=== PATIENT | female | born 1990 | race Caucasian/White ===

== ENCOUNTER 2020-01-24 03:25 | Inpatient (IN) | payer MEDICAID ==
[~2020-01-24] VITALS: Ht 144.8 cm; Wt 49.9 kg
[2020-01-24 05:23] LABS: HEMATOCRIT. 32.1 % (36.0-48.0); HEMOGLOBIN. 11.1 g/dL (12.0-16.0); MEAN CORPUSCULAR HEMOGLOBIN 34.4 pg (28.0-32.0); MEAN CORPUSCULAR VOLUME 99.8 fL (81.0-99.0); MEAN PLATELET VOLUME 7.5 fl (7.4-10.4); PLATELET 225 x1000/uL (130-400); RED BLOOD CELL COUNT 3.21 mill/uL (4.2-5.4); RED CELL DISTRIBUTION WIDTH 12.9 % (11.6-14.6)
[2020-01-24 05:31] LABS: CHLORIDE 106 mEq/L (98-107)
[2020-01-24 05:52] LABS: PLATELET ESTIMATE NORMAL
[2020-01-24] MEDS ORDERED: ACETAMINOPHEN 325MG TABLET PO ONE (06:30)
[2020-01-24] MEDS ORDERED: NITROFURANTOIN MACROCRYSTAL 25MG CAPSULE PO ONE (06:30)
[2020-01-24] MEDS ORDERED: SODIUM CHLORIDE 0.9% 1,000 ML IV ONE (07:16)
[2020-01-24 07:41] LABS: CLARITY URINE CLOUDY (CLEAR); COLOR URINE YELLOW (YELLOW); KETONES URINE TRACE (NEGATIVE); LEUKOCYTE ESTERASE URINE 2+ (NEGATIVE); NITRITE URINE NEGATIVE (NEGATIVE); OCCULT BLOOD URINE TRACE (NEGATIVE); PH URINE 5.5 (4.5-8.0); PROTEIN URINE 1+ (NEGATIVE); SPECIFIC GRAVITY URINE 1.021 (1.005-1.030)
[2020-01-24] MEDS ORDERED: ACETAMINOPHEN 325MG TABLET PO SCH (07:43)
[2020-01-24] MEDS ORDERED: SULFAMETHOXAZOLE/TRIMETHOPRIM 800/160MG TABLET PO SCH (11:15)
[2020-01-24] MEDS ORDERED: ONDANSETRON HCL 4MG/2ML INJ IV PRN (11:30)
[2020-01-24 12:00] VITALS: BP 99/52
[2020-01-24 12:15] VITALS: BP 99/52
[2020-01-24 13:06] LABS: HCG SCREEN POSITIVE
[2020-01-24] MEDS ORDERED: GENTAMICIN 120MG PREMIX 100 ML IV SCH (14:00)
[2020-01-24] MEDS ORDERED: CLINDAMYCIN 900 MG in DEXTROSE 5% WATER 50 ML IV SCH (14:00)
[2020-01-24 16:00] VITALS: BP 98/49
[2020-01-24] MEDS: ACETAMINOPHEN WITH CODEINE 300/30MG TABLET PO PRN (16:05)
[2020-01-24] MEDS: CEFTRIAXONE 1 G PREMIX 50 ML IV SCH (18:35)
[2020-01-24 20:00] VITALS: BP 93/53
[2020-01-24] MEDS ORDERED: NITROFURANTOIN 100MG M/M CAPSULE PO SCH (21:00)
[2020-01-24] MEDS ORDERED: CLINDAMYCIN 600MG PREMIX 50 ML IV SCH (22:00)
[2020-01-24] MEDS: ACETAMINOPHEN 325MG TABLET PO PRN (22:27)
[2020-01-25] VITALS: BP 97/46
[2020-01-25] MEDS ORDERED: GENTAMICIN 80MG PREMIX 100 ML IV SCH (02:00)
[2020-01-25 04:00] VITALS: BP 103/57
[2020-01-25] MEDS: ACETAMINOPHEN WITH CODEINE 300/30MG TABLET PO PRN ×2 (07:36→21:32)
[2020-01-25 07:41] LABS: HEMATOCRIT. 26.6 % (36.0-48.0); HEMOGLOBIN. 9.1 g/dL (12.0-16.0); MEAN CORPUSCULAR HEMOGLOBIN 34.4 pg (28.0-32.0); MEAN CORPUSCULAR VOLUME 99.8 fL (81.0-99.0); MEAN PLATELET VOLUME 8.1 fl (7.4-10.4); PLATELET 185 x1000/uL (130-400); RED BLOOD CELL COUNT 2.66 mill/uL (4.2-5.4); RED CELL DISTRIBUTION WIDTH 12.6 % (11.6-14.6)
[2020-01-25 07:45] LABS: CHLORIDE 106 mEq/L (98-107)
[2020-01-25 08:00] VITALS: BP 102/60
[2020-01-25] MEDS ORDERED: POTASSIUM CHLORIDE 20MEQ TABLET SR PO NR (09:00)
[2020-01-25] MEDS: SODIUM CHLORIDE 0.9% 1,000 ML IV SCH (09:02)
[2020-01-25 10:04] LABS: PLATELET ESTIMATE NORMAL
[2020-01-25 12:00] VITALS: BP 92/46
[2020-01-25] MEDS: ACETAMINOPHEN 325MG TABLET PO PRN (15:07)
[2020-01-25 16:00] VITALS: BP 96/54
[2020-01-25] MEDS: CEFTRIAXONE 1 G PREMIX 50 ML IV SCH (18:05)
[2020-01-25 20:00] VITALS: BP 100/60
[2020-01-26] VITALS: BP 99/40
[2020-01-26 04:00] VITALS: BP 103/60
[2020-01-26] MEDS: ACETAMINOPHEN 325MG TABLET PO PRN ×2 (04:54→11:55)
[2020-01-26] MEDS: SODIUM CHLORIDE 0.9% 1,000 ML IV SCH ×2 (04:57→11:56)
[2020-01-26 05:56] LABS: BASOPHILS % 0.1 % (0.0-2.0); EOSINOPHILS % 0.3 % (0.0-5.0); HEMATOCRIT. 27.8 % (36.0-48.0); HEMOGLOBIN. 9.4 g/dL (12.0-16.0); LYMPHOCYTES % 8.5 % (20.0-50.0); MEAN CORPUSCULAR HEMOGLOBIN 34.1 pg (28.0-32.0); MEAN CORPUSCULAR VOLUME 100.3 fL (81.0-99.0); MEAN PLATELET VOLUME 8.2 fl (7.4-10.4); MONOCYTES % 7.6 % (2.0-8.0); NEUTROPHILS % 83.5 % (40.0-76.0); PLATELET 192 x1000/uL (130-400); RED BLOOD CELL COUNT 2.77 mill/uL (4.2-5.4)
[2020-01-26 06:16] LABS: CHLORIDE 110 mEq/L (98-107)
[2020-01-26 08:00] VITALS: BP 106/70
[2020-01-26 11:57] VITALS: BP 106/70
[2020-01-26] MEDS ORDERED: CEPH-569 MT (12:18)
== END 2020-01-26 12:12 | disposition home or self-care (01) | DRG 566 ==
LOC: ER 04:06 → 6EST 10:46 → EDBEDREQTM 10:54 → ENRESERV 11:21
PROVIDERS: ADMIT Internal Medicine; ATTEND Internal Medicine
DX: O98.812 Other maternal infectious and parasitic diseases complicating pregnancy, second trimester (principal); A41.50 Gram-negative sepsis, unspecified; O23.02 Infections of kidney in pregnancy, second trimester; E87.1 Hypo-osmolality and hyponatremia; O25.12 Malnutrition in pregnancy, second trimester; O99.012 Anemia complicating pregnancy, second trimester; O99.282 Endocrine, nutritional and metabolic diseases complicating pregnancy, second trimester; D64.9 Anemia, unspecified; Z88.0 Allergy status to penicillin; Z3A.20 20 weeks gestation of pregnancy
CPT/HCPCS: 36415; 76770; 76805; 80048; 80053; 81003; 84702; 84703; 85025; 87077; 87186; 93005; 99285; J0696; J1580; J3490; J7030; J7060

== ENCOUNTER 2020-02-17 12:20 | Observation (INO) | payer MEDICAID ==
[~2020-02-17] VITALS: Ht 152.4 cm; Wt 49.4 kg
[~2020-02-17 12:20] MED LIST: CEPH-569 MT
[2020-02-17] MEDS ORDERED: PNV1TABL50 PO (12:56)
[2020-02-17 13:42] LABS: HEMATOCRIT 32.2 % (36.0-48.0); HEMOGLOBIN 11.3 g/dL (12.0-16.0); MEAN CORPUSCULAR HEMOGLOBIN 34.6 pg (28.0-32.0); MEAN CORPUSCULAR VOLUME 98.6 fL (81.0-99.0); PLATELET 275 x1000/uL (130-400); RED BLOOD CELL COUNT 3.27 mill/uL (4.2-5.4)
[2020-02-17 14:07] LABS: CLARITY URINE TURBID (CLEAR); COLOR URINE DARK YELLOW (YELLOW); KETONES URINE TRACE (NEGATIVE); LEUKOCYTE ESTERASE URINE 1+ (NEGATIVE); NITRITE URINE POSITIVE (NEGATIVE); OCCULT BLOOD URINE NEGATIVE (NEGATIVE); PH URINE 5.5 (4.5-8.0); PROTEIN URINE 1+ (NEGATIVE); SPECIFIC GRAVITY URINE 1.024 (1.005-1.030)
[2020-02-17] MEDS ORDERED: DEXT 5%/LACTATED RINGERS 1,000 ML IV ONE (14:30)
[2020-02-17] MEDS ORDERED: CEFAZOLIN 2,000 MG in DEXT 5% WATER 100 ML IV NR (14:30)
== END 2020-02-17 15:40 | disposition home or self-care (01) ==
LOC: 8 EST LDRP 12:20
PROVIDERS: ADMIT Obstetrics & Gynecology; ATTEND Obstetrics & Gynecology
DX: O9A.212 Injury, poisoning and certain other consequences of external causes complicating pregnancy, second trimester (principal); S40.022A Contusion of left upper arm, initial encounter; S40.021A Contusion of right upper arm, initial encounter; S80.02XA Contusion of left knee, initial encounter; S80.01XA Contusion of right knee, initial encounter; Z3A.23 23 weeks gestation of pregnancy; Z79.899 Other long term (current) drug therapy; W18.2XXA Fall in (into) shower or empty bathtub, initial encounter; Y93.89 Activity, other specified; Y92.89 Other specified places as the place of occurrence of the external cause; Y99.8 Other external cause status
CPT/HCPCS: 36415; 76805; 81003; 85027; 87086; 96365; 99281; G0378; J0690; J7060; 87077; 87186; 96360; 96361

== ENCOUNTER 2020-04-15 15:17 | Inpatient (IN) | payer MEDICAID ==
[~2020-04-15] VITALS: Ht 144.8 cm; Wt 57.0 kg
[~2020-04-15 15:17] MED LIST changes: +PNV1TABL50 PO
[2020-04-15] MEDS ORDERED: ACETAMINOPHEN 325MG TABLET PO STA (15:27)
[2020-04-15] MEDS ORDERED: ONDANSETRON HCL 4MG/2ML INJ IV STA (15:27)
[2020-04-15] MEDS ORDERED: SODIUM CHLORIDE 0.9% 1,000 ML IV ONE ×2 (15:27→18:30)
[2020-04-15 16:37] LABS: HEMATOCRIT. 33.5 % (36.0-48.0); HEMOGLOBIN. 11.8 g/dL (12.0-16.0); MEAN CORPUSCULAR HEMOGLOBIN 34.3 pg (28.0-32.0); MEAN CORPUSCULAR VOLUME 97.4 fL (81.0-99.0); MEAN PLATELET VOLUME 8.6 fl (7.4-10.4); PLATELET 256 x1000/uL (130-400); RED BLOOD CELL COUNT 3.44 mill/uL (4.2-5.4); RED CELL DISTRIBUTION WIDTH 12.8 % (11.6-14.6)
[2020-04-15 16:39] LABS: CHLORIDE 101 mEq/L (98-107)
[2020-04-15 17:05] LABS: PLATELET ESTIMATE NORMAL
[2020-04-15 17:27] LABS: CLARITY URINE TURBID (CLEAR); COLOR URINE DARK YELLOW (YELLOW); KETONES URINE 2+ (NEGATIVE); LEUKOCYTE ESTERASE URINE 3+ (NEGATIVE); NITRITE URINE NEGATIVE (NEGATIVE); OCCULT BLOOD URINE TRACE (NEGATIVE); PROTEIN URINE 1+ (NEGATIVE); SPECIFIC GRAVITY URINE 1.021 (1.005-1.030)
[2020-04-15] MEDS ORDERED: MORPHINE SULFATE 2 MG/ML CPJ (NOT FOR IM USE) IV ONE (18:30)
[2020-04-15 18:45] VITALS: BP 88/52
[2020-04-15] MEDS: CEFTRIAXONE 1 G PREMIX 50 ML IV NR ×2 (18:47→23:50)
[2020-04-15] MEDS ORDERED: DEXT 5%/LACTATED RINGERS 1,000 ML IV ONE (19:45)
[2020-04-15] MEDS ORDERED: GENTAMICIN 100MG PREMIX 50 ML IV SCH (20:00)
[2020-04-15] MEDS: AMPICILLIN 2,000 MG in SODIUM CHLORIDE 0.9% 100 ML IV SCH (21:55)
[2020-04-15] MEDS ORDERED: CEFTRIAXONE 2 G PREMIX 50 ML IV SCH (22:00)
[2020-04-15] MEDS ORDERED: CEFTRIAXONE 1 G PREMIX 50 ML IV SCH (22:30)
[2020-04-15] MEDS: GENTAMICIN 100MG PREMIX 50 ML IV SCH (23:07)
[2020-04-16] MEDS ORDERED: AMPICILLIN IM SCH
[2020-04-16] MEDS: AMPICILLIN 2,000 MG in SODIUM CHLORIDE 0.9% 100 ML IV SCH ×4 (04:35→23:00)
[2020-04-16] MEDS ORDERED: ACETAMINOPHEN 325MG TABLET ONE (04:46)
[2020-04-16] MEDS ORDERED: BETAMETHASONE ACET/BETAMET 30 MG/5 ML VIAL IM SCH (06:15)
[2020-04-16] MEDS: GENTAMICIN 100MG PREMIX 50 ML IV SCH (06:44)
[2020-04-16] MEDS ORDERED: CEFTRIAXONE 2 G PREMIX 50 ML IV SCH ×2 (09:00→22:00)
[2020-04-16 10:38] LABS: HEMATOCRIT. 29.3 % (36.0-48.0); HEMOGLOBIN. 10.2 g/dL (12.0-16.0); MEAN CORPUSCULAR VOLUME 97.8 fL (81.0-99.0); MEAN PLATELET VOLUME 7.6 fl (7.4-10.4); PLATELET 215 x1000/uL (130-400); RED BLOOD CELL COUNT 2.99 mill/uL (4.2-5.4); RED CELL DISTRIBUTION WIDTH 12.8 % (11.6-14.6)
[2020-04-16 13:43] LABS: PLATELET ESTIMATE NORMAL
[2020-04-16] MEDS: GENTAMICIN 80MG PREMIX 100 ML IV SCH (16:42)
[2020-04-16] MEDS: ACETAMINOPHEN 325MG TABLET PO PRN (20:00)
[2020-04-17] MEDS: AMPICILLIN 2,000 MG in SODIUM CHLORIDE 0.9% 100 ML IV SCH ×2 (04:30→10:55)
[2020-04-17] MEDS: GENTAMICIN 80MG PREMIX 100 ML IV SCH (04:33)
[2020-04-17 10:10] LABS: HEMATOCRIT. 28.2 % (36.0-48.0); HEMOGLOBIN. 9.7 g/dL (12.0-16.0); MEAN CORPUSCULAR HEMOGLOBIN 33.8 pg (28.0-32.0); MEAN CORPUSCULAR VOLUME 98.4 fL (81.0-99.0); MEAN PLATELET VOLUME 8.6 fl (7.4-10.4); PLATELET 244 x1000/uL (130-400); RED BLOOD CELL COUNT 2.87 mill/uL (4.2-5.4); RED CELL DISTRIBUTION WIDTH 12.7 % (11.6-14.6)
[2020-04-17 11:23] LABS: PLATELET ESTIMATE NORMAL
[2020-04-17] MEDS ORDERED: CEFAZOLIN 2000MG in DEXTROSE 5% WATER 100ML IV SCH (12:30)
[2020-04-17] MEDS: CEFAZOLIN 1000MG PREMIX 50 ML IV SCH (18:02)
[2020-04-17] MEDS: ACETAMINOPHEN 325MG TABLET PO PRN (20:59)
[2020-04-18] MEDS: CEFAZOLIN 1000MG PREMIX 50 ML IV SCH ×2 (06:00)
[2020-04-18 06:16] LABS: BASOPHILS % 0.2 % (0.0-2.0); EOSINOPHILS % 0.2 % (0.0-5.0); LYMPHOCYTES % 10.5 % (20.0-50.0); MEAN CORPUSCULAR HEMOGLOBIN 33.7 pg (28.0-32.0); MEAN PLATELET VOLUME 8.4 fl (7.4-10.4); MONOCYTES % 4.8 % (2.0-8.0); NEUTROPHILS % 84.3 % (40.0-76.0); PLATELET 283 x1000/uL (130-400); RED BLOOD CELL COUNT 2.96 mill/uL (4.2-5.4); RED CELL DISTRIBUTION WIDTH 12.7 % (11.6-14.6)
== END 2020-04-18 08:55 | disposition home or self-care (01) | DRG 566 ==
LOC: ER 15:17 → EDBEDREQTM 19:00 → CANBEDREQ 20:41 → 8 EST LDRP 22:16 → OBSVTOIN 22:16
PROVIDERS: ADMIT Obstetrics & Gynecology; ATTEND Obstetrics & Gynecology
DX: O23.03 Infections of kidney in pregnancy, third trimester (principal); B96.20 Unspecified Escherichia coli [E. coli] as the cause of diseases classified elsewhere; Z16.11 Resistance to penicillins; O45.8X3 Other premature separation of placenta, third trimester; Z3A.30 30 weeks gestation of pregnancy; Z88.0 Allergy status to penicillin; O34.219 Maternal care for unspecified type scar from previous cesarean delivery
CPT/HCPCS: 36415; 76805; 76815; 80053; 80170; 81003; 85025; 87077; 87186; 96361; 96366; 99281; 99291; J0290; J0690; J0696; J0702; J1580; J2270; J2405; J7030; J7050; J7060

== ENCOUNTER 2020-06-13 21:16 | Inpatient (IN) | payer MEDICAID ==
[~2020-06-13] VITALS: Ht 154.9 cm; Wt 62.1 kg
[2020-06-13] MEDS ORDERED: DEXT 5%/LR + PITOCIN 20UNITS/L 1,000 ML IV SCH ×2 (21:35→23:50)
[2020-06-13] MEDS ORDERED: FERR-71 PO (21:38)
[2020-06-13] MEDS ORDERED: NALOXONE HCL 0.4 MG/ML 1ML VIAL IM PRN (21:45)
[2020-06-13] MEDS ORDERED: MISOPROSTOL 100MCG TABLET VG SCH (21:45)
[2020-06-13] MEDS ORDERED: METHYLERGONOVINE MALEATE 0.2 MG/ML IM PRN (21:45)
[2020-06-13] MEDS ORDERED: CARBOPROST TROMETHAMINE 250 MCG/ML AMPUL IM PRN (21:45)
[2020-06-13] MEDS ORDERED: BUTORPHANOL TARTRATE 2 MG/ML VIAL IV PRN (21:45)
[2020-06-13] MEDS: LACTATED RINGERS 1,000 ML IV SCH ×2 (22:21→23:00)
[2020-06-13 22:23] LABS: INR 0.9; PARTIAL THROMBOPLASTIN TIME 25.1 sec (23.4-31.0); PROTHROMBIN TIME 9.4 sec (9.6-11.0)
[2020-06-13 22:24] LABS: HEMATOCRIT. 36.6 % (36.0-48.0); HEMOGLOBIN. 12.7 g/dL (12.0-16.0); MEAN CORPUSCULAR HEMOGLOBIN 33.8 pg (28.0-32.0); MEAN CORPUSCULAR VOLUME 97.3 fL (81.0-99.0); MEAN PLATELET VOLUME 9.3 fl (7.4-10.4); PLATELET 309 x1000/uL (130-400); RED BLOOD CELL COUNT 3.77 mill/uL (4.2-5.4); RED CELL DISTRIBUTION WIDTH 14.1 % (11.6-14.6)
[2020-06-13] MEDS ORDERED: CITRIC ACID/SODIUM CITRATE SOLN 30ML UDC PO NR (22:26)
[2020-06-13] MEDS ORDERED: MORPHINE SULFATE/PF 1MG/ML 10ML AMP ONE (22:35)
[2020-06-13] MEDS ORDERED: CEFAZOLIN SODIUM 1000MG/VIAL ONE (22:35)
[2020-06-13] MEDS ORDERED: FENTANYL CITRATE/PF 50MCG/ML 2ML VIAL ONE (22:35)
[2020-06-13] MEDS ORDERED: OXYTOCIN 10 UNITS/ML 1ML ONE ×2 (22:35→23:12)
[2020-06-13] MEDS ORDERED: EPHEDRINE SULFATE 50MG/ML VIAL ONE (22:36)
[2020-06-13] MEDS ORDERED: DIPHENHYDRAMINE 50MG/ML VIAL ONE (22:36)
[2020-06-13] MEDS ORDERED: ONDANSETRON HCL 4MG/2ML INJ ONE (22:36)
[2020-06-13] MEDS ORDERED: KETOROLAC 60MG/2ML VIAL IM ONE (22:36)
[2020-06-13 22:44] LABS: CLARITY URINE TURBID (CLEAR); COLOR URINE YELLOW (YELLOW); KETONES URINE NEGATIVE (NEGATIVE); LEUKOCYTE ESTERASE URINE 1+ (NEGATIVE); NITRITE URINE NEGATIVE (NEGATIVE); OCCULT BLOOD URINE 3+ (NEGATIVE); PH URINE 6.5 (4.5-8.0); PROTEIN URINE 2+ (NEGATIVE); SPECIFIC GRAVITY URINE 1.014 (1.005-1.030); UROBILINOGEN URINE 0.2 E.U./dL (0.2-1.0)
[2020-06-13 23:00] LABS: HEPATITIS B SURFACE ANTIGEN NEGATIVE
[2020-06-13 23:09] LABS: *AMPHETAMINES SCREEN URINE NEGATIVE (NEGATIVE); *BARBITURATES SCREEN URINE NEGATIVE (NEGATIVE); *BENZODIAZEPINES SCREEN URINE NEGATIVE (NEGATIVE); *COCAINE SCREEN URINE NEGATIVE (NEGATIVE)
[2020-06-13 23:10] LABS: CANNABINOID URINE SCREEN NEGATIVE (NEGATIVE); METHADONE URINE SCREEN NEGATIVE (NEGATIVE); OPIATES URINE SCREEN NEGATIVE (NEGATIVE); PHENCYCLIDINE URINE SCREEN NEGATIVE (NEGATIVE)
[2020-06-13] MEDS ORDERED: MIDAZOLAM HCL 2 MG/2 ML VIAL ONE (23:22)
[2020-06-13 23:48] LABS: PLATELET ESTIMATE NORMAL
[2020-06-14] MEDS ORDERED: KETOROLAC 30MG/ML VIAL IV PRN
[2020-06-14] MEDS ORDERED: RHO(D) IMMUNE GLOBULIN 300 MCG/SYR IM PRN
[2020-06-14] MEDS ORDERED: FENTANYL CITRATE/PF 50MCG/ML 2ML VIAL IV PRN ×3
[2020-06-14] MEDS ORDERED: MEPERIDINE HCL/PF 25MG/ML CPJ IV PRN
[2020-06-14] MEDS ORDERED: MORPHINE SULFATE 2 MG/ML CPJ (NOT FOR IM USE) IV PRN ×2
[2020-06-14] MEDS ORDERED: MORPHINE SULFATE 10 MG/ML CPJ IV PRN
[2020-06-14] MEDS ORDERED: IBUPROFEN 400MG TABLET PO PRN
[2020-06-14] MEDS ORDERED: DEXAMETHASONE 10 MG/ML VIAL IV PRN
[2020-06-14] MEDS ORDERED: ONDANSETRON HCL 4MG/2ML INJ IV PRN
[2020-06-14] MEDS ORDERED: DIPHENHYDRAMINE 50MG/ML VIAL IV PRN
[2020-06-14] MEDS ORDERED: BISACODYL 10MG SUPP PR PRN
[2020-06-14] MEDS ORDERED: MORPHINE SULFATE 4 MG/ML CPJ (NOT FOR IM USE) IV PRN (00:15)
[2020-06-14 02:20] VITALS: BP 115/62
[2020-06-14 07:41] VITALS: BP 118/61
[2020-06-14 08:22] LABS: BASOPHILS % 0.5 % (0.0-2.0); HEMATOCRIT. 33.3 % (36.0-48.0); HEMOGLOBIN. 11.3 g/dL (12.0-16.0); LYMPHOCYTES % 8.1 % (20.0-50.0); MEAN CORPUSCULAR HEMOGLOBIN 33.3 pg (28.0-32.0); MEAN PLATELET VOLUME 9.5 fl (7.4-10.4); MONOCYTES % 5.7 % (2.0-8.0); NEUTROPHILS % 85.7 % (40.0-76.0); PLATELET 275 x1000/uL (130-400); RED CELL DISTRIBUTION WIDTH 13.9 % (11.6-14.6)
[2020-06-14 16:18] VITALS: BP 104/50
[2020-06-14] MEDS: IBUPROFEN 800MG TABLET PO PRN ×2 (17:52→23:34)
[2020-06-14 20:00] VITALS: BP 102/64
[2020-06-15] VITALS: BP 115/64
[2020-06-15 04:00] VITALS: BP 101/60
[2020-06-15] MEDS: IBUPROFEN 800MG TABLET PO PRN ×3 (06:09→20:00)
[2020-06-15 08:00] VITALS: BP 102/57
[2020-06-15 12:30] VITALS: BP 103/63
[2020-06-15 16:36] VITALS: BP 104/67
[2020-06-15] MEDS ORDERED: MEASLES,MUMPS&RUBELLA VACCINE 1 VIAL SUBCUT ONE (17:00)
[2020-06-15 20:15] VITALS: BP 107/69
[2020-06-16] MEDS: IBUPROFEN 800MG TABLET PO PRN ×2 (03:18→09:31)
[2020-06-16 03:45] VITALS: BP 115/73
[2020-06-16 07:30] VITALS: BP 103/70
[2020-06-16] MEDS ORDERED: TETANUS, DIPHTHERIA, PERTUSSIS VAC/PF 0.5ML (>7YR OLD) IM ONE (08:00)
== END 2020-06-16 10:30 | disposition home or self-care (01) | DRG 540 ==
LOC: 8 EST LDRP 21:16 → OBSVTOIN 21:16 → 8EST 06-14 03:17
PROVIDERS: ADMIT Obstetrics & Gynecology; ATTEND Obstetrics & Gynecology
PROC: 10D00Z1 Extraction of Products of Conception, Low, Open Approach (ICD-10-PCS; principal; 2020-06-13)
DX: O34.211 Maternal care for low transverse scar from previous cesarean delivery (principal); O99.02 Anemia complicating childbirth; D62 Acute posthemorrhagic anemia; O75.89 Other specified complications of labor and delivery; O99.12 Other diseases of the blood and blood-forming organs and certain disorders involving the immune mechanism complicating childbirth; N85.6 Intrauterine synechiae; D72.829 Elevated white blood cell count, unspecified; Z37.0 Single live birth; Z3A.38 38 weeks gestation of pregnancy; Z81.8 Family history of other mental and behavioral disorders; Z79.899 Other long term (current) drug therapy
CPT/HCPCS: 36415; 80305; 81003; 85025; 86592; 86703; 86762; 86850; 86900; 87340; 88307; 90707; 90715; 99281; G0378; J0595; J0690; J1200; J1885; J2250; J2274; J2405; J2590; J3010; J3490

== ENCOUNTER 2022-04-13 21:40 | Inpatient (IN) | payer MEDICAID ==
[~2022-04-13] VITALS: Ht 154.9 cm; Wt 66.7 kg
[~2022-04-13 21:40] MED LIST changes: -CEPH-569 MT; +FERR-71 PO
[2022-04-13] MEDS ORDERED: CARBOPROST TROMETHAMINE 250 MCG/ML AMPUL IM PRN (22:00)
[2022-04-13] MEDS ORDERED: NALOXONE HCL 0.4 MG/ML 1ML VIAL IM PRN (22:00)
[2022-04-13] MEDS ORDERED: OXYTOCIN 30 UNITS/500ML NS PMX 500 ML IV SCH (22:00)
[2022-04-13] MEDS ORDERED: METHYLERGONOVINE MALEATE 0.2 MG/ML IM PRN (22:00)
[2022-04-13] MEDS ORDERED: MISOPROSTOL 100MCG TABLET VG SCH (22:00)
[2022-04-13] MEDS ORDERED: CITRIC ACID/SODIUM CITRATE SOLN 30ML UDC PO NR (22:10)
[2022-04-13] MEDS ORDERED: LACTATED RINGERS 1,000 ML IV SCH (22:15)
[2022-04-13] MEDS ORDERED: FENTANYL CITRATE/PF 50MCG/ML 2ML VIAL ONE (22:17)
[2022-04-13] MEDS ORDERED: MORPHINE SULFATE/PF 1MG/ML 10ML AMP ONE (22:17)
[2022-04-13] MEDS ORDERED: ONDANSETRON HCL 4MG/2ML INJ ONE (22:17)
[2022-04-13] MEDS ORDERED: CLINDAMYCIN 900 MG PREMIX 50 ML IV ONE (22:17)
[2022-04-13] MEDS ORDERED: OXYTOCIN 10 UNITS/ML 1ML ONE (22:17)
[2022-04-13 22:37] LABS: BASOPHILS % 0.1 % (0.0-2.0); EOSINOPHILS % 0.4 % (0.0-5.0); HEMATOCRIT. 36.6 % (36.0-48.0); HEMOGLOBIN. 12.3 g/dL (12.0-16.0); LYMPHOCYTES % 18.3 % (20.0-50.0); MEAN CORPUSCULAR HEMOGLOBIN 32.3 pg (28.0-32.0); MEAN CORPUSCULAR VOLUME 95.9 fL (81.0-99.0); MEAN PLATELET VOLUME 7.7 fl (7.4-10.4); MONOCYTES % 6.9 % (2.0-8.0); NEUTROPHILS % 74.3 % (40.0-76.0); PLATELET 324 x1000/uL (130-400); RED BLOOD CELL COUNT 3.81 mill/uL (4.2-5.4); RED CELL DISTRIBUTION WIDTH 13.7 % (11.6-14.6)
[2022-04-13 22:47] LABS: INR 0.9; PARTIAL THROMBOPLASTIN TIME 28.7 sec (23.4-31.0); PROTHROMBIN TIME 9.8 sec (9.6-11.0)
[2022-04-13 22:57] LABS: CLARITY URINE CLEAR (CLEAR); COLOR URINE YELLOW (YELLOW); KETONES URINE TRACE (NEGATIVE); LEUKOCYTE ESTERASE URINE NEGATIVE (NEGATIVE); NITRITE URINE NEGATIVE (NEGATIVE); OCCULT BLOOD URINE NEGATIVE (NEGATIVE); PH URINE 6.5 (4.5-8.0); PROTEIN URINE NEGATIVE (NEGATIVE); SPECIFIC GRAVITY URINE 1.025 (1.005-1.030)
[2022-04-13 23:09] LABS: *AMPHETAMINES SCREEN URINE NEGATIVE (NEGATIVE); *BARBITURATES SCREEN URINE NEGATIVE (NEGATIVE); *BENZODIAZEPINES SCREEN URINE NEGATIVE (NEGATIVE); *COCAINE SCREEN URINE NEGATIVE (NEGATIVE); CANNABINOID URINE SCREEN NEGATIVE (NEGATIVE); METHADONE URINE SCREEN NEGATIVE (NEGATIVE); OPIATES URINE SCREEN NEGATIVE (NEGATIVE); PHENCYCLIDINE URINE SCREEN NEGATIVE (NEGATIVE)
[2022-04-13 23:11] LABS: HEPATITIS B SURFACE ANTIGEN NEGATIVE
[2022-04-14] MEDS ORDERED: DIPHENHYDRAMINE 50MG/ML VIAL ONE (00:24)
[2022-04-14] MEDS ORDERED: KETOROLAC 60MG/2ML VIAL IM ONE (00:24)
[2022-04-14] MEDS ORDERED: DIPHENHYDRAMINE 50MG/ML VIAL IV PRN (00:30)
[2022-04-14] MEDS ORDERED: BUTORPHANOL TARTRATE 2 MG/ML VIAL IV PRN (00:30)
[2022-04-14] MEDS ORDERED: NALOXONE HCL 0.4 MG/ML 1ML VIAL IV PRN (00:30)
[2022-04-14] MEDS ORDERED: IBUPROFEN 400MG TABLET PO PRN (01:30)
[2022-04-14] MEDS ORDERED: HYDROMORPHONE HCL/PF 2MG/ML CPJ IM PRN (01:30)
[2022-04-14 04:17] VITALS: BP 116/73
[2022-04-14] MEDS ORDERED: TETANUS, DIPHTHERIA, PERTUSSIS VAC/PF 0.5ML (>10YR OLD) IM ONE (04:30)
[2022-04-14] MEDS ORDERED: MEASLES,MUMPS&RUBELLA VACCINE 1 VIAL SUBCUT ONE (04:30)
[2022-04-14] MEDS: KETOROLAC 30MG/ML VIAL IV SCH ×2 (06:00→12:22)
[2022-04-14 08:00] VITALS: BP 106/75
[2022-04-14 12:00] VITALS: BP 100/65
[2022-04-14 16:00] VITALS: BP 92/55
[2022-04-14 20:00] VITALS: BP 115/75
[2022-04-14] MEDS: IBUPROFEN 800MG TABLET PO PRN (20:25)
[2022-04-15 04:00] VITALS: BP 100/54
[2022-04-15] MEDS: IBUPROFEN 800MG TABLET PO PRN ×3 (04:12→20:59)
[2022-04-15 06:11] LABS: BASOPHILS % 0.1 % (0.0-2.0); EOSINOPHILS % 0.4 % (0.0-5.0); HEMATOCRIT. 31.1 % (36.0-48.0); HEMOGLOBIN. 10.8 g/dL (12.0-16.0); LYMPHOCYTES % 9.5 % (20.0-50.0); MEAN CORPUSCULAR VOLUME 95.2 fL (81.0-99.0); MEAN PLATELET VOLUME 7.7 fl (7.4-10.4); MONOCYTES % 6.7 % (2.0-8.0); NEUTROPHILS % 83.3 % (40.0-76.0); PLATELET 232 x1000/uL (130-400); RED BLOOD CELL COUNT 3.26 mill/uL (4.2-5.4); RED CELL DISTRIBUTION WIDTH 13.8 % (11.6-14.6)
[2022-04-15 08:00] VITALS: BP 115/79
[2022-04-15] MEDS: FERROUS SULFATE 325MG TABLET PO SCH (14:47)
[2022-04-15 16:00] VITALS: BP 116/77
[2022-04-15 20:00] VITALS: BP 117/78
[2022-04-16 04:30] VITALS: BP 114/64
[2022-04-16] MEDS: IBUPROFEN 800MG TABLET PO PRN ×2 (04:34→09:31)
[2022-04-16 08:00] VITALS: BP 118/75
[2022-04-16] MEDS ORDERED: IBUP-2030 PO (08:24)
[2022-04-16] MEDS: FERROUS SULFATE 325MG TABLET PO SCH (09:31)
== END 2022-04-16 11:30 | disposition home or self-care (01) | DRG 539 ==
LOC: 8 EST LDRP 21:40 → 8EST 04-14 03:22
PROVIDERS: ADMIT Obstetrics & Gynecology; ATTEND Obstetrics & Gynecology
PROC: 10D00Z1 Extraction of Products of Conception, Low, Open Approach (ICD-10-PCS; principal; 2022-04-14)
PROC: 0UB70ZZ Excision of Bilateral Fallopian Tubes, Open Approach (ICD-10-PCS; 2022-04-14)
PROC: 3E0R3BZ Introduction of Anesthetic Agent into Spinal Canal, Percutaneous Approach (ICD-10-PCS; 2022-04-14)
DX: O34.219 Maternal care for unspecified type scar from previous cesarean delivery (principal); O99.02 Anemia complicating childbirth; Z30.2 Encounter for sterilization; Z20.822 Contact with and (suspected) exposure to COVID-19; Z3A.39 39 weeks gestation of pregnancy; Z37.0 Single live birth; Z88.0 Allergy status to penicillin
CPT/HCPCS: 36415; 80305; 81003; 85025; 86592; 86703; 86762; 86850; 86900; 87340; 87426; 88302; 88307; 90707; 99281; J1200; J1885; J2274; J2405; J3010; J3490; J7120